=== PATIENT | female | born 1990 | race Caucasian/White ===

== ENCOUNTER 2016-08-18 16:19 | Emergency (ER) | payer SELFPAY ==
--- NOTE | 2016-08-18 17:45 | Emergency Department Record ---
History of Present Illness - General Chief complaint: Facial Swelling Stated complaint: SWELLING IN NECK,JASON Time Seen by Provider: 08/18/16 17:23 Source: Patient Mode of Arrival: Ambulatory Limitations: No limitations - History of Present Illness Initial Comments: pt has been sick with sore throat and fever for a week. she feels like her throat and neck are swelling. she has a hx of a cyst removed 9 months ago in her neck and feels that it is back. Onset/Timin -: Days(s) Exposure: Unknown Symptoms: Difficulty swallowing, Orolingual swelling Severity: Moderate Treatment Prior to Arrival: None Previous Allergy History: None - Related Data Home Medications Medication Instructions Recorded Confirmed Last Taken Alprazolam [Alprazolam] 1 mg PO DAILY PRN 08/18/16 08/18/16 Unknown Escitalopram Oxalate [Lexapro] 10 mg PO DAILY 08/18/16 08/18/16 Unknown Hydroxyzine Pamoate [Vistaril] 50 mg PO DAILY 08/18/16 08/18/16 Unknown Zolpidem Tartrate [Ambien] 10 mg PO DAILY 08/18/16 08/18/16 Unknown Previous Rx's Medication Instructions Recorded Amoxicillin [Amoxil] 500 mg PO TID #30 tab 08/18/16 Allergies Allergy/AdvReac Type Severity Reaction Status Date / Time cefixime [From Suprax] Allergy HIVES Verified 08/18/16 16:44 Travel Screening - Travel/Exposure Within Last 30 Days Have you traveled within the last 30 days?: No Review of Systems Reviewed: No additional complaints except as noted below Constitutional: Reports: As per HPI. Denies: Chills, Fever, Malaise, Night sweats, Weakness, Weight change Eyes: Reports: As per HPI. Denies: Eye discharge, Eye pain, Photophobia, Vision change ENT: Reports: As per HPI. Denies: Congestion, Dental pain, Ear pain, Epistaxis , Hearing loss, Throat pain Respiratory: Reports: As per HPI. Denies: Cough, Dyspnea, Hemoptysis, Stridor, Wheezes Cardiovascular: Reports: As per HPI. Denies: Arrhythmia, Chest pain, Dyspnea on exertion, Edema, Murmurs, Orthopnea, Palpitations, Paroxysmal nocturnal dyspnea, Rheumatic Fever, Syncope Endocrine: Reports: As per HPI. Denies: Fatigue, Heat or cold intolerance, Polydipsia, Polyuria Gastrointestinal: Reports: As per HPI. Denies: Abdominal pain, Constipation, Diarrhea, Hematemesis, Hematochezia, Melena, Nausea, Vomiting Genitourinary: Reports: As per HPI. Denies: Abnormal menses, Discharge, Dyspareunia, Dysuria, Frequency, Hematuria, Incontinence, Retention, Urgency Musculoskeletal: Reports: As per HPI. Denies: Arthralgia, Back pain, Gout, Joint swelling, Myalgia, Neck pain Skin: Reports: As per HPI. Denies: Bruising, Change in color, Change in hair/ nails, Lesions, Pruritus, Rash Neurological: Reports: As per HPI. Denies: Abnormal gait, Confusion, Headache, Numbness, Paresthesias, Seizure, Tingling, Tremors, Vertigo, Weakness Psychiatric: Reports: As per HPI. Denies: Anxiety, Auditory hallucinations, Depression, Homicidal thoughts, Suicidal thoughts, Visual hallucinations Hematological/Lymphatic: Reports: As per HPI. Denies: Anemia, Blood Clots, Easy bleeding, Easy bruising, Swollen glands Past Medical History - SOCIAL HISTORY Smoking Status: Never smoker Alcohol Use: None Drug Use: None - RESPIRATORY Hx Respiratory Disorders: No - CARDIOVASCULAR Hx Cardio Disorders: No - NEURO Hx Neuro Disorders: Yes Hx Headaches: Yes - GI Hx GI Disorders: No - Hx Genitourinary Disorders: No - ENDOCRINE Hx Endocrine Disorders: No - MUSCULOSKELETAL Hx Musculoskeletal Disorders: Yes Hx Arthritis: Yes Comment:: autoimmune disorders - PSYCH Hx Psych Problems: Yes Hx Anxiety: Yes Hx Depression: Yes - HEMATOLOGY/ONCOLOGY Hx Hematology/Oncology Disorders: No Family Medical History Any Significant Family History?: No Physical Exam - General General Appearance: Alert, Oriented x3, Cooperative, Mild distress - Head Head exam: Normal inspection - Eye Eye exam: Normal appearance, PERRL, EOMI Pupils: Normal accommodation - ENT ENT exam: Normal exam, Mucous membranes moist, Normal external ear exam, Normal orophraynx, TM's normal bilaterally Ear exam: Normal external inspection. negative: External canal tenderness Nasal Exam: Normal inspection. negative: Discharge, Sinus tenderness Mouth exam: Normal external inspection, Tongue normal Teeth exam: Normal inspection. negative: Dental caries Throat exam: Tonsillar erythema. negative: Tonsillar exudate - Neck Neck exam: Full ROM, Lymphadenopathy, Tenderness, Thyromegaly - Respiratory Respiratory exam: Normal lung sounds bilaterally. negative: Respiratory distress - Cardiovascular Cardiovascular Exam: Regular rate, Normal rhythm, Normal heart sounds - GI/Abdominal GI/Abdominal exam: Soft, Normal bowel sounds. negative: Tenderness - Rectal Rectal exam: Deferred - exam: Deferred - Extremities Extremities exam: Normal inspection, Full ROM, Normal capillary refill. negative: Tenderness - Back Back exam: Reports: Normal inspection, Full ROM. Denies: Muscle spasm, Rash noted, Tenderness - Neurological Neurological exam: Alert, CN II-XII intact, Normal gait, Oriented X3 - Psychiatric Psychiatric exam: Normal affect, Normal mood - Skin Skin exam: Dry, Intact, Normal color, Warm Course Vital Signs 08/18/16 16:38 Temperature 99.4 F Pulse Rate 123 H Respiratory 20 Rate Blood Pressure 141/99 Pulse Ox 98 Medical Decision Making - Lab Data Result diagrams: 08/18/16 17:40 08/18/16 17:40 Disposition Disposition: Discharge Clinical Impression: Pharyngitis Qualifiers: Pharyngitis/tonsillitis etiology: unspecified etiology Qualified Code(s): J02.9 - Acute pharyngitis, unspecified Disposition: Home, Self-Care Condition: (1) Good Instructions: Pharyngitis (ED) Additional Instructions: follow up with family doctor. rest return sooner if worse Prescriptions: Amoxicillin [Amoxil] 500 mg PO TID #30 tab Forms: Patient Portal Access
[2016-08-18 17:52] LABS: BASO % 0.3 % (0-6); EOS % 2.5 % (0-6); GRAN % 59.4 % (47-80); HEMATOCRIT 43.4 % (35.0-47.0); HEMOGLOBIN 14.8 gm/dl (11.6-16.0); LYMPH % 29.6 % (16-45); MEAN CELL VOLUME 85.3 fl (81-97); MEAN CORPUSCULAR HEMOGLOBIN 29.1 pg (27-33); MEAN CORPUSCULAR HGB CONC 34.1 g/dl (32-36); MEAN PLATELET VOLUME 9.7 fl (7.4-10.4); MONO % 8.2 % (0-9); PLATELET COUNT 413 K/uL (130-400); RED BLOOD COUNT 5.09 M/uL (3.80-5.40); RED CELL DISTRIBUTION WIDTH 12.9 % (11.5-14.5); WHITE BLOOD COUNT W/O DIFF 11.4 K/uL (4.2-12.2)
[2016-08-18 18:05] LABS: ANION GAP 11.4 (7-16); BLOOD UREA NITROGEN 5 mg/dL (7-17); CARBON DIOXIDE 28.6 mmol/L (22-30); CREATININE 0.8 mg/dL (0.52-1.04); EST GLOMERULAR FILTRATION RATE > 60 ml/min; GLUCOSE,RANDOM 86 mg/dL (70-110)
[2016-08-18 18:23] LABS: THYROXINE (T4) 9.41 ug/dl (5.53-11.0)
== END 2016-08-18 19:54 | disposition home or self-care (01) ==
LOC: ER 16:19
DX: J02.9 Acute pharyngitis, unspecified (principal); R13.10 Dysphagia, unspecified; R22.1 Localized swelling, mass and lump, neck
CPT/HCPCS: 99283 ×2; 85025; 80048; 87880; 84479; 84436; 86308; 70491; Q9967

== ENCOUNTER 2017-04-26 21:22 | Emergency (ER) | payer MEDICAID, OTHER ==
--- NOTE | 2017-04-26 21:30 | Emergency Department Record ---
History of Present Illness - General Stated Complaint: [employer]OYEE [employer]/NEEDLE STICK Time Seen by Provider: 04/26/17 21:24 Source: Patient Mode of Arrival: Ambulatory Limitations: No limitations - History of Present Illness Initial comments: 26 yo female presents to ED for evaluation following a needle stick while changing the trash in PACU this evening. Patient reports that she was stuck with a needle to the right ring finger, palmar aspect, proximally. Patient denies other injury, and reports that she is UTD on Hepatitis B vaccination. Patient denies health problems other than autoimmune disorders. Onset/Timin -: Minutes(s) Location: Right, Upper extremity Radiation: Non-Radiating Consistency: Constant Improves with: None Worsens with: None Associated Symptoms: Denies other symptoms - [place] Coma Scale Eye Response: (4) Open spontaneously Motor Response: (6) Obeys commands Verbal Response: (5) Oriented Shane Total: 15 - Related Data Allergies Allergy/AdvReac Type Severity Reaction Status Date / Time cefixime [From Suprax] Allergy HIVES Unverified 04/12/17 14:26 Review of Systems Constitutional: Denies: Chills, Fever, Malaise, Night sweats Eyes: Denies: Eye discharge, Eye pain ENT: Denies: Congestion, Ear pain, Epistaxis Respiratory: Denies: Cough, Dyspnea Cardiovascular: Denies: Chest pain, Dyspnea on exertion Endocrine: Denies: Fatigue, Heat or cold intolerance Gastrointestinal: Denies: Abdominal pain, Nausea, Vomiting Genitourinary: Denies: Incontinence, Retention Musculoskeletal: Denies: Arthralgia, Back pain, Gout, Joint swelling Skin: Denies: Bruising, Change in color Neurological: Denies: Abnormal gait, Confusion, Headache, Seizure Psychiatric: Denies: Anxiety Hematological/Lymphatic: Denies: Anemia, Blood Clots Past Medical History - SOCIAL HISTORY Smoking Status: Never smoker Drug Use: None - RESPIRATORY Hx Respiratory Disorders: No - CARDIOVASCULAR Hx Cardio Disorders: No - NEURO Hx Neuro Disorders: Yes Hx Headaches: Yes - GI Hx GI Disorders: No - Hx Genitourinary Disorders: No - ENDOCRINE Hx Endocrine Disorders: No - MUSCULOSKELETAL Hx Musculoskeletal Disorders: Yes Hx Arthritis: Yes Comment:: autoimmune disorders - PSYCH Hx Psych Problems: Yes Hx Anxiety: Yes Hx Depression: Yes - HEMATOLOGY/ONCOLOGY Hx Hematology/Oncology Disorders: No Physical Exam - General General Appearance: Alert, Oriented x3, Cooperative, No acute distress Limitations: No limitations - Head Head exam: Atraumatic, Normocephalic, Normal inspection Head exam detail: negative: Abrasion, Contusion, Morales's sign, General tenderness, Hematoma, Laceration - Eye Eye exam: Normal appearance. negative: Conjunctival injection, Periorbital swelling, Periorbital tenderness, Scleral icterus - ENT Ear exam: negative: Auricular hematoma, Auricular trauma Nasal Exam: negative: Active bleeding, Discharge, Dried blood, Foreign body Mouth exam: negative: Drooling, Laceration, Muffled voice, Tongue elevation - Neck Neck exam: Normal inspection. negative: Meningismus, Tenderness - Respiratory Respiratory exam: Normal lung sounds bilaterally. negative: Rales, Respiratory distress, Rhonchi, Stridor - Cardiovascular Cardiovascular Exam: Regular rate, Normal rhythm, Normal heart sounds - GI/Abdominal GI/Abdominal exam: Soft. negative: Rebound, Rigid, Tenderness - Rectal Rectal exam: Deferred - exam: Deferred - Extremities Extremities exam: Normal inspection. negative: Pedal edema, Tenderness - Back Back exam: Denies: CVA tenderness (R), CVA tenderness (L) - Neurological Neurological exam: Alert, Normal gait, Oriented X3 - Psychiatric Psychiatric exam: Normal affect, Normal mood - Skin Skin exam: Normal color. negative: Abrasion Type of lesion: negative: abrasion Course - Reevaluation(s) Reevaluation #1: 04/26/17 21:28 Patient was seen and examined, no bleeding from puncture site. Patient denies previous history of Hepatitis C, HIV, or Heaptitis B, reports that she was vaccinated for Hepatitis B. I discussed post-exposure prophylaxis with the patient for HIV, overall low risk as the needle has been in the garbage for several hours. Will draw the patient's baseline labs tongiht in ED, patient was instructed on HIV testing in 30 days as well and to follow-up with Employee Health in 3-5 days as directed. Disposition Disposition: Discharge Clinical Impression: Needle exposure Qualifiers: Encounter type: initial encounter Qualified Code(s): X58.XXXA - Exposure to other specified factors, initial encounter Disposition: Home, Self-Care Condition: (2) Stable Instructions: Needle Stick Injuries (ED) Additional Instructions: Return to ED if your symptoms worsen or if you have any concerns. Follow-up with employee health in 3-5 days as directed. Forms: Patient Portal Access Time of Disposition: 21:31 Quality - Quality Measures Quality Measures: N/A - Blood Pressure Screening Does Patient Have Any of the Following: Active Dx of HTN Systolic Measurement: ~ Screening for High Blood Pressure: Patient Exclusion, Hx of HTN [[id number]]
== END 2017-04-26 21:56 | disposition home or self-care (01) ==
LOC: ER 21:22
DX: S60.414A Abrasion of right ring finger, initial encounter (principal); W46.0XXA Contact with hypodermic needle, initial encounter; W22.8XXA Striking against or struck by other objects, initial encounter; W45.8XXA Other foreign body or object entering through skin, initial encounter; Y92.238 Other place in hospital as the place of occurrence of the external cause; Y99.0 Civilian activity done for income or pay
CPT/HCPCS: 99283

== ENCOUNTER 2017-07-02 12:54 | Emergency (ER) | payer BC, MEDICAID ==
[2017-07-02] MEDS ORDERED: KETOROLAC 30 MG/ML VIAL IM ONE (13:50)
[2017-07-02] MEDS ORDERED: ORPHENADRINE CITRATE 60MG/2ML VIAL IM ONE (13:51)
--- NOTE | 2017-07-02 14:31 | Emergency Department Record ---
History of Present Illness - General Chief Complaint: Back Pain/Injury Stated Complaint: BACK PAIN Time Seen by Provider: 07/02/17 13:41 Source: Patient Mode of Arrival: Ambulatory Limitations: No limitations - History of Present Illness Initial Comments: pt injured back last sunday while lifting a washing machine. it has contd to hurt. no probs with bowel or bladder. it radiates down right leg to the thigh Complaint: Back pain Onset/Timin -: Days(s) Similar Symptoms Previously: Yes Place: Home Radiation: None Severity scale (1-10): 4 Quality: Aching Consistency: Constant, Intermittent Worsens With: Movement Context: Bending, While lifting Associated Symptoms: Denies other symptoms - Related Data Previous Rx's Medication Instructions Recorded Cyclobenzaprine HCl [Flexeril] 10 mg PO TID #10 tablet 07/02/17 Ibuprofen [Motrin 600Mg] 600 mg PO Q6H #20 tablet 07/02/17 Allergies Allergy/AdvReac Type Severity Reaction Status Date / Time cefixime [From Suprax] Allergy HIVES Unverified 05/25/17 12:37 Travel Screening - Travel/Exposure Within Last 30 Days Have you traveled within the last 30 days?: No Review of Systems Reviewed: No additional complaints except as noted below Constitutional: Reports: As per HPI. Denies: Chills, Fever, Malaise, Night sweats, Weakness, Weight change Eyes: Reports: As per HPI. Denies: Eye discharge, Eye pain, Photophobia, Vision change ENT: Reports: As per HPI. Denies: Congestion, Dental pain, Ear pain, Epistaxis , Hearing loss, Throat pain Respiratory: Reports: As per HPI. Denies: Cough, Dyspnea, Hemoptysis, Stridor, Wheezes Cardiovascular: Reports: As per HPI. Denies: Arrhythmia, Chest pain, Dyspnea on exertion, Edema, Murmurs, Orthopnea, Palpitations, Paroxysmal nocturnal dyspnea, Rheumatic Fever, Syncope Endocrine: Reports: As per HPI. Denies: Fatigue, Heat or cold intolerance, Polydipsia, Polyuria Gastrointestinal: Reports: As per HPI. Denies: Abdominal pain, Constipation, Diarrhea, Hematemesis, Hematochezia, Melena, Nausea, Vomiting Genitourinary: Reports: As per HPI. Denies: Abnormal menses, Discharge, Dyspareunia, Dysuria, Frequency, Hematuria, Incontinence, Retention, Urgency Musculoskeletal: Reports: As per HPI. Denies: Arthralgia, Back pain, Gout, Joint swelling, Myalgia, Neck pain Skin: Reports: As per HPI. Denies: Bruising, Change in color, Change in hair/ nails, Lesions, Pruritus, Rash Neurological: Reports: As per HPI. Denies: Abnormal gait, Confusion, Headache, Numbness, Paresthesias, Seizure, Tingling, Tremors, Vertigo, Weakness Psychiatric: Reports: As per HPI. Denies: Anxiety, Auditory hallucinations, Depression, Homicidal thoughts, Suicidal thoughts, Visual hallucinations Hematological/Lymphatic: Reports: As per HPI. Denies: Anemia, Blood Clots, Easy bleeding, Easy bruising, Swollen glands Past Medical History - SOCIAL HISTORY Smoking Status: Never smoker Alcohol Use: None Drug Use: None - RESPIRATORY Hx Respiratory Disorders: No - CARDIOVASCULAR Hx Cardio Disorders: No - NEURO Hx Neuro Disorders: Yes Hx Headaches: Yes - GI Hx GI Disorders: No - Hx Genitourinary Disorders: No - ENDOCRINE Hx Endocrine Disorders: No - MUSCULOSKELETAL Hx Musculoskeletal Disorders: Yes Hx Arthritis: Yes Comment:: autoimmune disorders - PSYCH Hx Psych Problems: Yes Hx Anxiety: Yes Hx Depression: Yes - HEMATOLOGY/ONCOLOGY Hx Hematology/Oncology Disorders: No Comment:: SJOGREN'S/ALOPECIA Family Medical History Any Significant Family History?: No Physical Exam - General General Appearance: Alert, Oriented x3, Cooperative, Mild distress - Head Head exam: Normal inspection - Eye Eye exam: Normal appearance, PERRL, EOMI Pupils: Normal accommodation - ENT ENT exam: Normal exam, Mucous membranes moist, Normal external ear exam, Normal orophraynx Ear exam: Normal external inspection. negative: External canal tenderness Nasal Exam: Normal inspection. negative: Discharge, Sinus tenderness Mouth exam: Normal external inspection, Tongue normal Teeth exam: Normal inspection. negative: Dental caries Throat exam: Normal inspection. negative: Tonsillar erythema, Tonsillar exudate - Neck Neck exam: Normal inspection, Full ROM. negative: Tenderness - Respiratory Respiratory exam: Normal lung sounds bilaterally. negative: Respiratory distress - Cardiovascular Cardiovascular Exam: Regular rate, Normal rhythm, Normal heart sounds - GI/Abdominal GI/Abdominal exam: Soft, Normal bowel sounds. negative: Tenderness - Rectal Rectal exam: Deferred - exam: Deferred - Extremities Extremities exam: Normal inspection, Full ROM, Normal capillary refill. negative: Tenderness - Back Back exam: Reports: Full ROM, Muscle spasm, Tenderness. Denies: Rash noted - Neurological Neurological exam: Alert, CN II-XII intact, Normal gait, Oriented X3 - Psychiatric Psychiatric exam: Normal affect, Normal mood - Skin Skin exam: Dry, Intact, Normal color, Warm Course Vital Signs 07/02/17 13:28 Temperature 98.0 F Pulse Rate 87 Respiratory 20 Rate Blood Pressure 139/66 Pulse Ox 97 Disposition Disposition: Discharge Clinical Impression: Radiculopathy Qualifiers: Spinal region: lumbar Qualified Code(s): M54.16 - Radiculopathy, lumbar region Lumbar strain Qualifiers: Encounter type: initial encounter Qualified Code(s): S39.012A - Strain of muscle, fascia and tendon of lower back, initial encounter Disposition: Home, Self-Care Condition: (1) Good Instructions: Low Back Strain (ED), Lumbar Radiculopathy (ED) Additional Instructions: follow up with family doctor. return sooner if worse. ice to sore area and moist heat Prescriptions: Cyclobenzaprine HCl [Flexeril] 10 mg PO TID #10 tablet Ibuprofen [Motrin 600Mg] 600 mg PO Q6H #20 tablet Forms: Patient Portal Access, Return to Work/School Quality - Quality Measures Quality Measures: N/A - Blood Pressure Screening Does Patient Have Any of the Following: No Blood Pressure Classification: Pre-Hypertensive BP Reading Systolic Measurement: 139 Diastolic Measurement: 66 Screening for High Blood Pressure: < Pre-Hypertensive BP, F/U Documented > [ [id number]] Pre-Hypertensive Follow-up Interventions: Follow-up with rescreen every year.
--- NOTE | 2017-07-03 13:01 | RADIOLOGY REPORT ---
EXAM: LUMBAR SPINE, AP AND LATERAL VIEWS HISTORY: LOW BACK PAIN AND LEFT HIP PAIN FOR THREE DAYS, INJURED THREE DAYS AGO FROM LIFTING HEAVY OBJECT. TECHNIQUE: AP and lateral views of the lumbar spine were obtained. Comparison: None. Encounter: Initial. FINDINGS: The lumbar intervertebral disk spaces appear maintained. No definite fracture of the lumbar spine identified in the two view study. No appreciable subluxation evident. Very slight tilting of the spine to the right may simply be due to positioning or spasm. IMPRESSION: THE LUMBAR SPINE APPEARS ESSENTIALLY NEGATIVE WITH SLIGHT TILTING TO THE RIGHT WHICH MAY SIMPLY BE DUE TO POSITIONING OR SPASM. JOB NUMBER: [id number] [facility]
== END 2017-07-02 15:19 | disposition home or self-care (01) ==
LOC: ER 12:54
DX: S39.012A Strain of muscle, fascia and tendon of lower back, initial encounter (principal); X50.0XXA Overexertion from strenuous movement or load, initial encounter; Y92.009 Unspecified place in unspecified non-institutional (private) residence as the place of occurrence of the external cause
CPT/HCPCS: 99283; 96372; 99284; 72100; J1885; J2360

== ENCOUNTER 2018-07-05 14:23 | Emergency (ER) | payer MEDICAID ==
[2018-07-05 14:52] LABS: URINE APPEARANCE CLEAR; URINE BILIRUBIN NEGATIVE (NEGATIVE); URINE BLOOD NEGATIVE (NEGATIVE); URINE COLOR YELLOW; URINE GLUCOSE (UA) NEGATIVE (NEGATIVE); URINE KETONE NEGATIVE (NEGATIVE); URINE LEUKOCYTE ESTERASE NEGATIVE (NEGATIVE); URINE NITRITE NEGATIVE (NEGATIVE); URINE PROTEIN NEGATIVE (NEGATIVE); URINE UROBILINOGEN 0.2 E.U./dL (0.20 - 1.00)
[2018-07-05 15:03] LABS: HCG,QUALITATIVE URINE POSITIVE (NEGATIVE)
[2018-07-05 15:26] LABS: BASO % 0.1 % (0-6); EOS % 0.9 % (0-6); GRAN % 70.2 % (47-80); HEMOGLOBIN 14.5 gm/dl (11.6-16.0); LYMPH % 22.2 % (16-45); MEAN CELL VOLUME 86.1 fl (81-97); MEAN CORPUSCULAR HEMOGLOBIN 29.7 pg (27-33); MEAN CORPUSCULAR HGB CONC 34.5 g/dl (32-36); MEAN PLATELET VOLUME 9.9 fl (7.4-10.4); MONO % 6.6 % (0-9); PLATELET COUNT 392 K/uL (130-400); RED BLOOD COUNT 4.88 M/uL (3.80-5.40); RED CELL DISTRIBUTION WIDTH 13.3 % (11.5-14.5); WHITE BLOOD COUNT W/O DIFF 14.5 K/uL (4.2-12.2)
[2018-07-05 15:46] LABS: TOTAL B-hCG 1433 mIU/mL
[2018-07-05 15:50] LABS: BLOOD UREA NITROGEN 8 mg/dL (6-20); CREATININE 0.6 mg/dL (0.5-0.9); EST GLOMERULAR FILTRATION RATE > 60 mL/min
[2018-07-05 15:53] LABS: GLUCOSE,RANDOM 91 mg/dL (74-109)
--- NOTE | 2018-07-05 17:21 | Emergency Department Record ---
History of Present Illness - General Chief Complaint: Abdominal Pain Stated Complaint: PREG AND CRAMPING Time Seen by Provider: 07/05/18 14:51 Source: Patient Mode of Arrival: Ambulatory Limitations: No limitations - History of Present Illness Initial Comments: pt has abd cramping. she had 2 pos tests. she went to [facility] and they told her to come here to get an us. she has had no bleeding. she is . she has had nausea but no other symptoms MD Complaint: Abdominal pain Onset/Timin Location: Suprapubic Severity: Mild Severity scale (1-10): 3 Quality: Cramping Consistency: Intermittent Improves With: Nothing Worsens With: Nothing Associated Symptoms: Denies other symptoms - Related Data Patient : Yes (2 positive OTC) Home Medications Medication Instructions Recorded Confirmed Last Taken Escitalopram Oxalate [Lexapro] 20 mg PO DAILY 07/05/18 07/05/18 Unknown Pnv No.95/Ferrous Fum/Folic AC 1 each PO DAILY 07/05/18 07/05/18 07/05/18 [ Multivitamin Tablet] Allergies Allergy/AdvReac Type Severity Reaction Status Date / Time cefixime [From Suprax] Allergy HIVES Unverified 07/05/18 14:02 Travel Screening - Travel/Exposure Within Last 30 Days Have you traveled within the last 30 days?: No - Travel/Exposure Within Last Year Have you traveled outside the [place] in the last year?: No - Additonal Travel Details Have you been exposed to anyone with a communicable illness?: No - Travel Symptoms Symptom Screening: None Review of Systems Reviewed: No additional complaints except as noted below Constitutional: Reports: As per HPI. Denies: Chills, Fever, Malaise, Night sweats, Weakness, Weight change Eyes: Reports: As per HPI. Denies: Eye discharge, Eye pain, Photophobia, Vision change ENT: Reports: As per HPI. Denies: Congestion, Dental pain, Ear pain, Epistaxis , Hearing loss, Throat pain Respiratory: Reports: As per HPI. Denies: Cough, Dyspnea, Hemoptysis, Stridor, Wheezes Cardiovascular: Reports: As per HPI. Denies: Arrhythmia, Chest pain, Dyspnea on exertion, Edema, Murmurs, Orthopnea, Palpitations, Paroxysmal nocturnal dyspnea, Rheumatic Fever, Syncope Endocrine: Reports: As per HPI. Denies: Fatigue, Heat or cold intolerance, Polydipsia, Polyuria Gastrointestinal: Reports: As per HPI, Abdominal pain. Denies: Constipation, Diarrhea, Hematemesis, Hematochezia, Melena, Nausea, Vomiting Genitourinary: Reports: As per HPI. Denies: Abnormal menses, Discharge, Dyspareunia, Dysuria, Frequency, Hematuria, Incontinence, Retention, Urgency Musculoskeletal: Reports: As per HPI. Denies: Arthralgia, Back pain, Gout, Joint swelling, Myalgia, Neck pain Skin: Reports: As per HPI. Denies: Bruising, Change in color, Change in hair/ nails, Lesions, Pruritus, Rash Neurological: Reports: As per HPI. Denies: Abnormal gait, Confusion, Headache, Numbness, Paresthesias, Seizure, Tingling, Tremors, Vertigo, Weakness Psychiatric: Reports: As per HPI. Denies: Anxiety, Auditory hallucinations, Depression, Homicidal thoughts, Suicidal thoughts, Visual hallucinations Hematological/Lymphatic: Reports: As per HPI. Denies: Anemia, Blood Clots, Easy bleeding, Easy bruising, Swollen glands Past Medical History - SOCIAL HISTORY Smoking Status: Never smoker Alcohol Use: Rare Drug Use: None - RESPIRATORY Hx Respiratory Disorders: No - CARDIOVASCULAR Hx Cardio Disorders: No - NEURO Hx Neuro Disorders: Yes Hx Headaches: Yes - GI Hx GI Disorders: No - Hx Genitourinary Disorders: No - ENDOCRINE Hx Endocrine Disorders: No - MUSCULOSKELETAL Hx Musculoskeletal Disorders: Yes Hx Arthritis: Yes Comment:: autoimmune disorders - PSYCH Hx Psych Problems: Yes Hx Anxiety: Yes Hx Depression: Yes - HEMATOLOGY/ONCOLOGY Hx Hematology/Oncology Disorders: No Comment:: SJOGREN'S/ALOPECIA Family Medical History Any Significant Family History?: No Physical Exam - General General Appearance: Alert, Oriented x3, Cooperative, Mild distress - Head Head exam: Normal inspection - Eye Eye exam: Normal appearance, PERRL, EOMI Pupils: Normal accommodation - ENT ENT exam: Normal exam, Mucous membranes moist, Normal external ear exam, Normal orophraynx Ear exam: Normal external inspection. negative: External canal tenderness Nasal Exam: Normal inspection. negative: Discharge, Sinus tenderness Mouth exam: Normal external inspection, Tongue normal Teeth exam: Normal inspection. negative: Dental caries Throat exam: Normal inspection. negative: Tonsillar erythema, Tonsillar exudate - Neck Neck exam: Normal inspection, Full ROM. negative: Tenderness - Respiratory Respiratory exam: Normal lung sounds bilaterally. negative: Respiratory distress - Cardiovascular Cardiovascular Exam: Regular rate, Normal rhythm, Normal heart sounds - GI/Abdominal GI/Abdominal exam: Soft, Normal bowel sounds. negative: Tenderness - Rectal Rectal exam: Deferred - exam: Deferred - Extremities Extremities exam: Normal inspection, Full ROM, Normal capillary refill. negative: Tenderness - Back Back exam: Reports: Normal inspection, Full ROM. Denies: Muscle spasm, Rash noted, Tenderness - Neurological Neurological exam: Alert, CN II-XII intact, Normal gait, Oriented X3 - Psychiatric Psychiatric exam: Normal affect, Normal mood - Skin Skin exam: Dry, Intact, Normal color, Warm Course Vital Signs 07/05/18 07/05/18 14:26 16:26 Temperature 97.9 F Pulse Rate 76 Pulse Rate [ 64 Pulse Ox Probe] Respiratory 16 16 Rate Blood Pressure 126/79 Blood Pressure 124/68 [Left Arm] Pulse Ox 99 100 - Reevaluation(s) Reevaluation #1: 07/05/18 17:44 us shows 3 gestational sacks. no yolk or heartbeat or pole yet, Medical Decision Making - Lab Data Result diagrams: 07/05/18 15:15 07/05/18 15:15 Lab Results 07/05/18 07/05/18 07/05/18 Range/Units 14:50 15:15 15:15 WBC 14.5 H (4.2-12.2) K/uL RBC 4.88 (3.80-5.40) M/uL Hgb 14.5 (11.6-16.0) gm/dl Hct 42.0 (35.0-47.0) % MCV 86.1 (81-97) fl MCH 29.7 (27-33) pg MCHC 34.5 (32-36) g/dl RDW 13.3 (11.5-14.5) % Plt Count 392 (130-400) K/uL MPV 9.9 (7.4-10.4) fl Gran % 70.2 (47-80) % Lymphocytes % 22.2 (16-45) % Monocytes % 6.6 (0-9) % Eosinophils % 0.9 (0-6) % Basophils % 0.1 (0-6) % Sodium 141 (136-145) mmol/L Potassium 3.5 (3.4-4.5) mmol/L Chloride 104 (98-107) mmol/L Carbon Dioxide 25.0 (22-29) mmol/L Anion Gap 12.0 (7-16) BUN 8 (6-20) mg/dL Creatinine 0.6 (0.5-0.9) mg/dL Estimated GFR > 60 mL/min Random Glucose 91 (74-109) mg/dL Calcium 8.9 (8.6-10.0) mg/dL Total Beta HCG 1433 mIU/mL Urine Color Yellow Urine Appearance Clear Urine pH 6.5 (5.0-8.0) Ur Specific [place] 1.025 (1.002-1.030) Urine Protein Negative (NEGATIVE) Urine Glucose (UA) Negative (NEGATIVE) Urine Ketones Negative (NEGATIVE) Urine Blood Negative (NEGATIVE) Urine Nitrite Negative (NEGATIVE) Urine Bilirubin Negative (NEGATIVE) Urine Urobilinogen 0.2 (0.20 - 1.00) E.U./dL Ur Leukocyte Esterase Negative (NEGATIVE) Urine HCG, Qual Positive H (NEGATIVE) Disposition Disposition: Discharge Clinical Impression: Threatened in first trimester Disposition: Home, Self-Care Condition: (1) Good Instructions: (ED) Additional Instructions: 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 return sooner if worse. have repeat ultrasound and hcg in 1 week Forms: Patient Portal Access Quality - Quality Measures Quality Measures: N/A - Blood Pressure Screening Does Patient Have Any of the Following: No Blood Pressure Classification: Pre-Hypertensive BP Reading Systolic Measurement: 126 Diastolic Measurement: 79 Screening for High Blood Pressure: < Pre-Hypertensive BP, F/U Documented > [ [id number]] Pre-Hypertensive Follow-up Interventions: Follow-up with rescreen every year.
--- NOTE | 2018-07-08 19:05 | ULTRASOUND REPORT ---
EXAM: ULTRASOUND OB PELV W TV - EARLY (4-13wks) HISTORY: ABDOMINAL CRAMPING WITH NAUSEA. TECHNIQUE: Transabdominal and transvaginal scanning is performed. FINDINGS: The uterus measures 8.1 x 4.5 x 3.7 cm. The right ovary measures 4.2 x 3.6 x 1.6 cm. The left ovary measures 4.3 x 2.9 x 3.0 cm. Venous and arterial flow are identified in each ovary. Within the endometrium there are three separate fluid collections, each or all of which could represent gestational sacs. These fluid collections measure 2 mm , 3 mm, and 5 mm in dimension. None of the fluid sacs contain a visible pole or yolk sac. There is no ascites. There are no obvious adnexal masses. IMPRESSION: POSSIBLE MULTIPLE PREGNANCIES. CLINICAL CORRELATION AND SHORT-TERM FOLLOW-UP IMAGING IS SUGGESTED. JOB NUMBER: [id number] [facility]
== END 2018-07-05 18:01 | disposition home or self-care (01) ==
LOC: ER 14:23
DX: O20.0 Threatened abortion (principal); Z3A.00 Weeks of gestation of pregnancy not specified
CPT/HCPCS: 76801; 76817; 80048; 81003; 81025; 84702; 85025; 99283; 99284